=== PATIENT | female | born 1990 | race Caucasian/White ===

== ENCOUNTER 2018-10-11 09:32 | Emergency (ER) | payer OTHER ==
--- NOTE | 2018-10-11 09:49 | ED Physician Documentation ---
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 She did not have any LOC. She states she is aware of the event. She has a headache - light sensative and she has some mild nausea. She is tearful. She did not take any OTC meds for pain. She has no other complaints.) - ROS CONST: no problems NEURO: dizziness MS/SKIN/LYMPH: neck pain. denies: weakness, numbness EYES/ENT: problems with vision CVS/RESP: none GI/: nausea. denies: vomiting - PAST HX Past History: none Immunizations: UTD Allergies/Adverse Reactions: Allergies Allergy/AdvReac Type Severity Reaction Status Date / Time diphenhydramine AdvReac No Reaction Verified 10/11/18 09:45 [From Benadryl] Home Medications: Ambulatory Orders Medication Instructions Recorded NK 10/11/18 - SOCIAL HX Smoking History: non-smoker Alcohol Use: none Drug Use: none - FAMILY HX Family History: none - REVIEWED ASSESSMENTS Nursing Assessment Reviewed: Yes Vitals Reviewed: Yes Progress - Progress Progress: 1050: Discussed results. 24 hours brain rest. Meds and symptoms to return to ER or PCP for and she is agreeable to plan DG ED Results Lab/Radiology - Radiology Radiology Impressions: Computed tomography head without contrast History: Fall on ice Findings: Transverse brain sections are obtained without contrast revealing normal sized ventricles and sulci. Rose-white differentiation is intact. There is no intracranial hemorrhage or skull fracture. Minimal bilateral maxillary sinus mucosal thickening is present. Impression: Intact brain and skull. Electronically signed on Oct 11, 2018 10:31:54 AM GASTROENTEROLOGIST by: Heron Bonilla Computed tomography cervical spine without contrast History: Fall Findings: Transverse cervical spine sections are obtained without contrast. Bilateral maxillary sinus mucosal thickening is noted. Mild bilateral cervicothoracic junction facet arthropathy is present. There is straightening of the normal lordosis. Minimal C5-6 anterolisthesis is present. There is no evidence of fracture. Impression: Minimal C5-6 anterolisthesis and cervicothoracic junction facet arthropathy. Electronically signed on Oct 11, 2018 10:34:21 AM GASTROENTEROLOGIST by: Heron Bonilla Left elbow three views History: Pain after fall Findings: The left elbow is unremarkable without fracture, dislocation, arthropathy, or joint effusion. Electronically signed on Oct 11, 2018 10:38:46 AM GASTROENTEROLOGIST by: Heron paul Fall Physical Exam - Physical Exam General Appearance: no acute distress, alert, mild distress Head: non-tender, no swelling, no obvious injury Neck: pain with neck movement (pain with palpation no obvious injury ) Eye: JOSEPHINE ENT: nml external inspection, no oral injury Resp/CVS: chest non-tender, breath sounds nml, no resp. distress, heart sounds nml Abdomen: soft, normal bowel sounds, no distension Neuro: oriented x3, CN's nml as tested, sensation nml, motor nml, mood/affect nml, inbound telemarketer nml, reflexes nml, inbound telemarketer symmetrical Discharge Clincal Impression: Fall Qualifiers: Encounter type: initial encounter Qualified Code(s): W19.XXXA - Unspecified fall, initial encounter Referrals: Estefania Escalona MD [Primary Care Provider] - 2 Days Comments: 1. Ibuprofen 800 mg take 1 by mouth every 12 hours as needed for headache 2. Cyclobenzaprine 10 mg take 1 by mouth every 8 hours for muscle pain 3. Tramadol 50 mg take 1 by mouth every 12 as needed for more severe pain 4. Zofran 4 mg take 1 by mouth every 8 hours as needed for nausea 5. EAT WITH MEDS 6. 24 hours screen and brain rest 7. Ice/Heat for comfort 8. Follow up with PCP for any continued symptoms (or work Physician) 9 Return to ER for any concerns - increased pain, dizziness, nausea and vomiti ng not controlled, or other concerns Condition: Stable Disposition: 01 HOME, SELF-CARE Decision to Admit: NO Date of Decison to Admit: 10/11/18 Decision Time: 10:57
--- NOTE | 2018-10-11 10:33 | Diagnostic Imaging Report ---
SUDEEP STARR [facility] [address] [facility] [address] [place], [place]. [address] Report Submission Date: Oct 11, 2018 10:31:54 AM THERAPEUTIC RECREATION ASSISTANT Patient Study Name: JOSEPH GUILLEN Date: Oct 11, 2018 10:04:47 AM THERAPEUTIC RECREATION ASSISTANT Modality Type: CT\SR Gender: F Description: CT BRAIN W/O CONTRAST : 92 Institution: [facility] Physician: SUDEEP STARR Computed tomography head without contrast History: Fall on ice Findings: Transverse brain sections are obtained without contrast revealing normal sized ventricles and sulci. Rose-white differentiation is intact. There is no intracranial hemorrhage or skull fracture. Minimal bilateral maxillary sinus mucosal thickening is present. Impression: Intact brain and skull. Electronically signed on Oct 11, 2018 10:31:54 AM THERAPEUTIC RECREATION ASSISTANT by: Heron KOLB
--- NOTE | 2018-10-11 10:35 | Diagnostic Imaging Report ---
SUDEEP STARR [facility] [id number] [facility] [address] [place], [place]. [address] Report Submission Date: Oct 11, 2018 10:34:21 AM HAND II CUTTER Patient Study Name: JOSEPH GUILLEN Date: Oct 11, 2018 10:08:40 AM HAND II CUTTER Modality Type: CT\SR Gender: F Description: CT C-SPINE W/O CONTRAS : 92 Institution: [facility] Physician: SUDEEP STARR Computed tomography cervical spine without contrast History: Fall Findings: Transverse cervical spine sections are obtained without contrast. Bilateral maxillary sinus mucosal thickening is noted. Mild bilateral cervicothoracic junction facet arthropathy is present. There is straightening of the normal lordosis. Minimal C5-6 anterolisthesis is present. There is no evidence of fracture. Impression: Minimal C5-6 anterolisthesis and cervicothoracic junction facet arthropathy. Electronically signed on Oct 11, 2018 10:34:21 AM SAMI by: Heron KOLB
[2018-10-11] MEDS ORDERED: KETOROLAC TROMETHAMINE 60 MG/2 ML VIAL IM ONE (10:40)
[2018-10-11] MEDS ORDERED: ORPHENADRINE CITRATE 60 MG/2 ML ML IM ONE (10:41)
[2018-10-11] MEDS ORDERED: ONDANSETRON HCL 4 MG TAB.RAPDIS PO ONE (10:41)
--- NOTE | 2018-10-11 10:42 | Diagnostic Imaging Report ---
SUDEEP STARR [facility] [address] [facility].[address] 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 Electronically signed on Oct 11, 2018 10:38:46 AM SAMI by: Heron KOLB
[2018-10-11] MEDS ORDERED: ONDANSETRON HCL 4 MG TAB.RAPDIS ONE (10:44)
[2018-10-11] MEDS ORDERED: KETOROLAC TROMETHAMINE 60 MG/2 ML VIAL ONE (10:44)
[2018-10-11] MEDS ORDERED: CYCLOBENZAPRINE HCL 5 MG TABLET ONE (10:45)
[2018-10-11] MEDS ORDERED: CYCLOBENZAPRINE HCL 10 MG TABLET PO ONE (10:46)
[2018-10-11 11:34] VITALS: BP 121/78
== END 2018-10-11 11:02 | disposition home or self-care (01) ==
LOC: ED 09:32
DX: R51 Headache (principal); M25.522 Pain in left elbow; M54.2 Cervicalgia; W00.9XXA Unspecified fall due to ice and snow, initial encounter; Y93.89 Activity, other specified; Y92.89 Other specified places as the place of occurrence of the external cause; Y99.0 Civilian activity done for income or pay
CPT/HCPCS: 70450; 72125; 73080; 96372; 99283; 99285; A9270; J1885